=== PATIENT | female | born 1945 | race Caucasian/White ===

== ENCOUNTER 2022-07-26 10:09 | Outpatient (CLI) | payer MEDICARE | END 2022-07-26 10:10 | disposition home or self-care (01) | LOC: CSHCT 10:09 | PROVIDERS: ATTEND Internal Medicine | DX: E78.00 Pure hypercholesterolemia, unspecified (principal) | CPT/HCPCS: 75571 ==

== ENCOUNTER 2024-11-26 08:43 | Outpatient (CLI) | payer MEDICARE ==
[2024-11-26] MEDS ORDERED: Iopamidol 300 61% 100 ML VIAL FS ONE (13:43)
== END 2024-11-26 08:44 | disposition home or self-care (01) ==
LOC: CSHCT 08:43
PROVIDERS: ATTEND Family Medicine
DX: R10.13 Epigastric pain (principal); R41.3 Other amnesia
CPT/HCPCS: 70470; 76700